=== PATIENT | male | born 1950 | race Caucasian/White ===

== ENCOUNTER 2022-04-28 10:00 | Day surgery (SDC) | payer MEDICARE, MEDICAID ==
[~2022-04-28] VITALS: Ht 165.1 cm; Wt 74.8 kg
[~2022-04-28 10:00] MED LIST: AMIT10TA7 PO; GABA600T4 PO; MELA3TAB30 PO; OXYC1TAB23 PO; ceFAZolin SOD 2 GM in IV 1 EA IV ONE
[2022-04-28 10:34] LABS: HEMATOCRIT 40.1 % (42.0-52.0); HEMOGLOBIN 12.8 g/dl (13.5-17.5); MEAN CORPUSCULAR HGB CONC 31.9 g/dl (32.0-36.5); MEAN CORPUSCULAR VOLUME 100.3 fl (80.0-96.0); PLATELET COUNT, AUTOMATED 227 10^3/uL (150-450); WHITE BLOOD COUNT 8.3 10^3/uL (4.0-10.0)
[2022-04-28] MEDS ORDERED: LR 1,000 ML IV SCH ×2 (10:55→17:50)
[2022-04-28 11:23] LABS: BLOOD UREA NITROGEN 18 MG/DL (7-18); CREATININE FOR GFR 0.81 MG/DL (0.70-1.30); GLOMERULAR FILTRATION RATE > 60.0 (>42); GLUCOSE, FASTING 97 MG/DL (70-100)
[2022-04-28 11:24] LABS: CALCIUM LEVEL 8.5 MG/DL (8.8-10.2); CARBON DIOXIDE LEVEL 30 mmol/L (20-29); CHLORIDE LEVEL 103 MEQ/L (98-107); POTASSIUM SERUM 4.3 MEQ/L (3.5-5.1); SODIUM LEVEL 138 MEQ/L (136-145)
[2022-04-28] MEDS ORDERED: LIDOCAINE 2% 100MG/5ML SDV (FOR ANES.) As Ordered ONE (14:27)
[2022-04-28] MEDS ORDERED: ONDANSETRON 4MG 2ML VIAL As Ordered ONE (14:27)
[2022-04-28] MEDS ORDERED: propofoL 200 MG/20 ML VIAL As Ordered ONE (14:27)
[2022-04-28] MEDS ORDERED: dexameTHASONE 4 MG/ML 1ML VIAL (J1100 PER 1MG) As Ordered ONE (14:27)
[2022-04-28] MEDS ORDERED: MIDAZOLAM INJ 2MG/2ML VIAL (J2250 PER 1MG) As Ordered ONE (14:28)
[2022-04-28] MEDS ORDERED: fentaNYL 250 MCG/5 ML INJECTION As Ordered ONE (14:28)
[2022-04-28] MEDS ORDERED: LIDOCAINE W/EPINEPHRINE 1% 20ML VIAL As Ordered ONE (15:15)
[2022-04-28] MEDS ORDERED: TETRACAINE 0.5% OPHTH SOLN 4ML As Ordered ONE (15:15)
[2022-04-28] MEDS ORDERED: ERYTHROMYCIN OPHTH OINT As Ordered ONE (15:16)
[2022-04-28] MEDS ORDERED: SEVOFLURANE INHAL SOLN 250 ML BTL As Ordered ONE (15:42)
[2022-04-28] MEDS ORDERED: ACETAMINOPHEN 1000MG 100ML IV BTL (OFIRMEV) (J0131 PER 10MG) As Ordered ONE (16:21)
[2022-04-28] MEDS ORDERED: ePHEDrine SULFATE 25 MG/5 ML(5MG/ML) SYRINGE As Ordered ONE (16:48)
[2022-04-28] MEDS: LIDOCAINE 2% W/EPINEPHRINE 20ML VIAL **PRES FREE As Ordered ONE (17:30)
[2022-04-28] MEDS ORDERED: POLYSPORIN OPHTH OINT 3.5 GM As Ordered ONE ×2 (17:33→19:13)
[2022-04-28] MEDS ORDERED: oxyCODONE 5MG TAB PO PRN (17:50)
[2022-04-28] MEDS ORDERED: fentaNYL 100 MCG/2 ML INJECTION IV PRN (17:50)
[2022-04-28] MEDS ORDERED: ONDANSETRON 4MG 2ML VIAL IV PRN (17:50)
[2022-04-28] MEDS ORDERED: MORPHINE 2 MG/ML 1ML VIAL IV PRN (17:50)
[2022-04-28 19:35] VITALS: BP 138/69
== END 2022-04-28 19:46 | disposition home or self-care (01) ==
LOC: M SDC 10:00
PROVIDERS: ATTEND Plastic Surgery Surgery of the Hand
DX: C44.1122 Basal cell carcinoma of skin of right lower eyelid, including canthus (principal); M51.9 Unspecified thoracic, thoracolumbar and lumbosacral intervertebral disc disorder; I25.2 Old myocardial infarction; D66 Hereditary factor VIII deficiency; G62.9 Polyneuropathy, unspecified; Z79.899 Other long term (current) drug therapy
CPT/HCPCS: 14060; 36415; 67961; 80048; 85027; J0131; J0690; J1100; J2250; J2405; J3010